=== PATIENT | female | born 1945 | race Caucasian/White ===

== ENCOUNTER 2018-09-15 13:23 | Outpatient (REF) | payer OTHER, SELFPAY ==
[2018-09-15 20:00] LABS: ALT 19 U/L (12-78); AST 13 U/L (15-37); Anion Gap 7.9 mmol/L (3-11); BUN 19 mg/dL (7-18); CO2 30.1 mmol/L (21.0-32.0); CREATININE 1.08 mg/dL (0.55-1.02); Calcium 9.4 mg/dL (8.5-10.1); Chloride 103 mmol/L (98-107); Cholesterol 207 mg/dL (50-200); Estimated GFR 50.01 (mL/min/1.73m2); Glucose 102 mg/dL (70-100); HDL Cholesterol 50 mg/dL (40-60); LDL CHOLESTEROL 130 mg/dL (<100); Potassium 4.4 mmol/L (3.5-5.1); Sodium 141 mmol/L (136-145); Triglyceride 189 mg/dL (30-150)
== END 2018-09-15 13:43 ==
LOC: NCHCN 13:23
PROVIDERS: PCP Internal Medicine; Visit Provider Nurse Practitioner Family
DX: I10 Essential (primary) hypertension (principal); E11.9 Type 2 diabetes mellitus without complications; E78.5 Hyperlipidemia, unspecified
CPT/HCPCS: 80048; 80061; 83721; 84450; 84460

== ENCOUNTER 2019-01-17 10:39 | Outpatient (CLI) | payer OTHER, SELFPAY ==
--- NOTE | 2019-01-17 10:12 | DI.RAD_ITS ---
SYMPTOMS/DIAGNOSIS: RT KNEE INJURY RIGHT KNEE: Narrowing of the medial tibiofemoral joint space is noted. There is articular sclerosis and hypertrophic spurring. Also there are severe degenerative changes involving the patellofemoral joint. SUMMARY: Severe right knee DJD.
== END 2019-01-17 10:59 ==
PROVIDERS: PCP Internal Medicine; Referring Provider Internal Medicine; Visit Provider Student in an Organized Health Care Education/Training Program
DX: M25.561 Pain in right knee; M17.11 Unilateral primary osteoarthritis, right knee; R22.41 Localized swelling, mass and lump, right lower limb; S70.11XA Contusion of right thigh, initial encounter; W22.8XXA Striking against or struck by other objects, initial encounter
CPT/HCPCS: 73562; 99203; 99214

== ENCOUNTER 2019-11-09 14:00 | Inpatient (IN) | payer OTHER, SELFPAY ==
[2019-11-09] VITALS (20 sets, daily range): BP systolic 95–144; BP diastolic 45–82; PULSE 86–103; RESP 4–24; TEMP 36.9–37.5; O2SAT 98–100
--- NOTE | 2019-11-09 15:05 | ED.GENADUL_ITS ---
Discharge Plan Disposition Condition: Stable Discharge Details Chief Complaint: SOB Admit Date/Time: 11/09/19 17:19 Admit Provider: Soto Sunshine Attending Provider: Hyacinth Hardwick Primary Care Provider: Geremias Joel ED Provider: Bart Rivas Discharge Instructions Activity:: Activity as Tolerated Equipment/Supplies:: No Equipment Needed Diet:: Low Sodium Discharge Orders Discharge Orders: Discharge Order (Routine); Ordered 11/10/19 Ordered By: Hyacinth Hardwick Discharge Data Discharge Date/Time-TO BE ENTERED AT DEPARTURE: 11/09/19 18:16 Medical Decision Making 1514 -- 74yo f with history of HTN and hyperlipidemia, here with SOB progressive over the past 2 weeks despite azithromycin. COVID neg 3 days ago. Consider CHF vs PE vs ACS. Delay in diagnostics secondary to difficulty with IV access. -- Labs reviewed and elevated ddimer. Nl BNP and trop. Will proceed to CT to assess for acute life threatening PE. Patient is anemic. Hb 10.3, this is down from last in 2013. Pt denies bleeding history. Mag mildly low- will give mag ox 800mg. 16:57 -- CT chest interprted by radiology: IMPRESSION: 1. Small pulmonary embolism to the lingula. 2. Pulmonary nodules.For patients at low risk (minimal or absent history of smoking and of other known risk factors), no routine follow-up is indicated. For patients at high risk (history of smoking or of other known risk factors), consider optional CT at 12 months. (Brittany et al., Fleischner Society, 2017) 3. Abnormal appearing partially viewed thyroid gland. Consider ultrasound. 4. Gallstones without evidence of acute cholecystitis. Patient is not a PUI and had recent neg COVID testing. Will repeat testing out of abundance of caution per hospital protocol. Medical Records Medical records reviewed: Yes I reviewed the patient's medical records. Lab Data Lab results reviewed: Yes I reviewed the patient's lab results. ECG Data Attestation: I personally reviewed and interpreted this ECG (s) as follows: (sinus 88bpm, nl axis, subtle st dep I, II, v4-6) Prior ECG tracings: available for review (findings today similar to prior 07/14/10) HPI General Mode of arrival: ambulatory . Date/Time Provider Initiated Documentation: 11/09/19 14:39 . Limitations to Documentation: no limitations . Information obtained by: patient . HPI Narrative: 74-year-old female with history of hypertension and hyperlipidemia, presents with chief complaint of shortness of breath. Patient notes she has had shortness of breath over the past 2 weeks. She does have some associated cough. No fevers. No chest pain. She notes shortness of breath is worse when she is lying flat. She denies associated swelling. She was tested for COVID-19 and was negative on 11/06/2019. Symptoms have persisted despite completion of azithromycin course prescribed by PCP. Related Data Home Medications Medication Instructions Recorded Confirmed hydrochlorothiazide 25 mg PO DAILY 03/31/13 11/09/19 simvastatin 40 mg PO DAILY 03/31/13 11/09/19 carboxymethylcellulose sodium 0.25 1 drp OP 4-6XD PRN 01/17/19 11/09/19 % eye drops in a dropperette lisinopril 5 mg tablet 5 mg PO DAILY 01/17/19 11/09/19 oxycodone 5 mg tablet 5 mg PO DAILY PRN tab 01/17/19 11/09/19 triamcinolone acetonide 0.1 % 1 applic TP BID PRN 01/17/19 11/09/19 topical cream acetaminophen [Tylenol] 650 mg PO Q4H PRN PRN #30 tab 11/10/19 apixaban See Rx Instructions .ROUTE 11/10/19 .COMPLEX #74 dose pk ascorbic acid (vitamin C) [Vitamin 250 mg PO BID #60 tab 11/10/19 C] cyanocobalamin (vitamin B-12) 1,000 mcg PO DAILY #30 cap 11/10/19 docusate sodium [Colace] 100 mg PO BID #60 cap 11/10/19 ferrous sulfate 325 mg PO BID #60 tab 11/10/19 Previous Rx's Medication Instructions Recorded acetaminophen [Tylenol] 650 mg PO Q4H PRN PRN #30 tab 11/10/19 apixaban See Rx Instructions .ROUTE 11/10/19 .COMPLEX #74 dose pk ascorbic acid (vitamin C) [Vitamin 250 mg PO BID #60 tab 11/10/19 C] cyanocobalamin (vitamin B-12) 1,000 mcg PO DAILY #30 cap 11/10/19 docusate sodium [Colace] 100 mg PO BID #60 cap 11/10/19 ferrous sulfate 325 mg PO BID #60 tab 11/10/19 Allergies Allergy/AdvReac Type Severity Reaction Status Date / Time No Known Allergies Allergy Verified 01/17/19 09:38 General Stated Complaint: SOB ALVARADO: 3 Review of Systems All systems reviewed & are unremarkable except as noted in HPI and below Constitutional Constitutional: Denies fever(s) Cardiovascular Cardiovascular: Denies chest pain and Reports dyspnea Respiratory Respiratory: Reports cough and Reports dyspnea PFSH Social History Smoking/Tobacco Use Status: Never Alcohol Intake: current Alcohol Intake frequency: holidays/special occasions only Alcohol type: beer Drug use: Never Do you feel safe at home: Yes Do you feel safe in your relationship?: Yes Exam Const General: cooperative and no acute distress HENMT Mouth: moist mucous membranes Eyes Conjunctivae: normal conjunctivae Sclera: normal sclerae Neck Neck: trachea midline, supple and no JVD Resp Auscultation: clear to auscultation bilaterally, no rales, no rhonchi and no wheezes Cardio Jugular venous pressure: no JVD Rate: regular rate and not tachycardic Rhythm: regular rhythm Heart Sounds: murmur systolic GI Palpation: soft, not firm, no guarding, no masses, not rigid and nontender Skin General skin exam: no rashes or lesions noted Neuro General: patient alert, patient awake, patient oriented x3 and tone normal Extrem General: no calf tenderness and no edema Psych Appearance: grossly normal Mental Status: mental status grossly normal Affect: anxious affect (Mild) Course Vital Signs Vital signs: Vital Signs Temperature 37.1 C 11/09/19 14:06 Pulse 97 H 11/09/19 14:06 Respiratory Rate 24 11/09/19 14:06 Blood Pressure 144/77 H 11/09/19 14:06 Pulse Oximetry 100 11/09/19 14:06 Temperature 37.1 C 11/09/19 14:06 Temperature Source Skin 11/09/19 14:06 Pulse 97 H 11/09/19 14:06 Respiratory Rate 24 11/09/19 14:11 Respiratory Effort Incrsd Work of Breathing 11/09/19 14:11 Respiratory Depth Normal 11/09/19 14:11 Respiratory Pattern Normal 11/09/19 14:11 Blood Pressure 144/77 H 11/09/19 14:06 Blood Pressure Position Sitting 11/09/19 14:06 Pulse Oximetry 100 11/09/19 14:06 Oxygen Delivery Method Room Air 11/09/19 14:06 Oxygen Flow Rate 0 11/09/19 14:06 Pain Level 0 11/09/19 14:06 Critical Care Time Critical Care Time Critical Care Time: Yes Total Critical Care Time: 40 Attestation: I spent greater than 40 minnutes addressing immediate life threats.
[2019-11-09 15:20] LABS: Abs Immature Grans 0.04 k/cumm (0.0-0.09); Absolute Basophil Count 0.01 k/cumm (0.0-0.2); Absolute Eosinophil Count 0.23 k/cumm (0.0-0.7); Absolute Lymphocyte Count 1.69 k/cumm (1.2-3.4); Absolute Monocyte Count 0.44 k/cumm (0.11-0.7); Absolute Neutrophil Count 6.07 k/cumm (1.2-6.7); Basophils % 0.1; Eosinophils % 2.7; HCT 33.2 % (36.0-46.0); HGB 10.4 g/dL (12.0-15.5); Immature Grans % 0.5 %; Lymphocytes % 19.9; Mean Corp. HGB Concentration 31.3 g/dL (32.0-36.0); Mean Corpuscular Volume 95.7 fL (80-95); Mean Platelet Volume 10.1 fL (8.0-11.0); Monocytes % 5.2; Neutrophils % 71.6; Platelet Count 242 x1000/uL (130-400); RBC 3.47 m/cumm (4.00-5.20); RBC Distribution Width 14.4 % (11.7-14.6); White Blood Cell Count 8.48 k/cumm (4.4-10.8)
--- NOTE | 2019-11-09 15:30 | DI.CT_ITS ---
EXAM: CT CHEST PE CTA CLINICAL HISTORY: SOB 2 weeks. TECHNIQUE: Imaging Protocol: Axial CT angiography was performed with multi-slice acquisition and mu lti-planar and/or 3D reconstructions. CONTRAST MATERIAL: Intravenous: Omnipaque 350 Contrast volume: 100 ml COMPARISON: No exams were available for comparison FINDINGS: The exam is limited by the patient's body habitus. Pulmonary Arteries: There is a question of a filling defect in a branch vessel in the lingula. The r emaining pulmonary arteries are free of thrombus. Tracheobronchial tree: Patent where visualized. Mediastinum and Melvi: No dominant adenopathy or fluid collection. Pulmonary parenchyma: No consolidation. A 4 millimeter nodule is seen in the anterior right upper lo be. A 3 millimeter nodule is noted in the right lower lobe. Pleura: No effusion or pneumothorax. Heart: The heart is not dilated. Mild coronary artery calcifications. Aorta: Thoracic aorta non-dilated. No evidence of dissection. Mild calcification. Upper abdomen: Gallstones. Gallbladder is not abnormally distended. No wall thickening or biliary dilatation is seen.. Bones: Degenerative changes are seen in the thoracic spine. IMPRESSION: Question of an embolus in a branch vessel in the lingula. Cholelithiasis. Two small pulmonary nodules. If the patient is at high risk for lung cancer a follow-up CT in 12 mon ths could be considered. RADIATION DOSE DELIVERED: 800.28mGy.cm Total DLP DATA REPOSITORY: All CT scans at this facility are submitted to the National Radiology Data Registry (NRDR) Dose Index Registry (DIR) with the [employer] (ACR). RADIATION OPTIMIZATION: All CT scans at this facility use at least one of these dose optimization te chniques: automated exposure control; mA and/or kV adjustment per patient size (includes targeted exa ms where dose is matched to clinical indication); or iterative reconstruction.
[2019-11-09 15:47] LABS: ALT 15 U/L (14-59); AST 12 U/L (15-37); Albumin 2.9 g/dL (3.4-5.0); Alkaline Phosphatase 122 U/L (46-116); Anion Gap 5.8 mmol/L (3-11); BUN 17 mg/dL (7-18); Bilirubin, Total 0.4 mg/dL (0.2-1.0); CO2 29.2 mmol/L (21.0-32.0); CREATININE 1.05 mg/dL (0.55-1.02); Calcium 9.1 mg/dL (8.5-10.1); Chloride 106 mmol/L (98-107); Estimated GFR 51.52 (mL/min/1.73m2); Glucose 95 mg/dL (74-106); Magnesium 1.6 mg/dL (1.8-2.4); NT-proBNP 337 pg/mL (<300); Potassium 4.2 mmol/L (3.5-5.1); Sodium 141 mmol/L (136-145); Total Protein 6.8 g/dL (6.4-8.2); Troponin I < 0.05 ng/Ml (<0.06)
[2019-11-09 15:53] LABS: D-Dimer 2491 ng/mlFEU (<500)
[2019-11-09] MEDS: Omnipaque 350 MG/ML 100 ML BTL IJ (15:56)
--- NOTE | 2019-11-09 16:43 | DI.VRAD_ITS ---
PROCEDURE INFORMATION: Exam: CT Angiography Chest With Contrast Exam date and time: 11/09/2019 3:36 PM Age: 74 years old Clinical indication: Shortness of breath; Patient HX: SOB 2 weeks TECHNIQUE: Imaging protocol: Computed tomographic angiography of the chest with intravenous contrast. 3D rendering: MIP and/or 3D reconstructed images were created by the technologist. Radiation optimization: All CT scans at this facility use at least one of these dose optimization techniques: automated exposure control; mA and/or kV adjustment per patient size (includes targeted exams where dose is matched to clinical indication); or iterative reconstruction. Contrast material: [id number]; Contrast volume: 100 ml; Contrast route: IV; COMPARISON: No relevant prior studies available. FINDINGS: Pulmonary arteries: Small focal pulmonary embolism to the lingula (5/221). In 1 mm nodule laterally in the right upper lobe (4/22). Aorta: Unremarkable. No aortic aneurysm. No aortic dissection. Thyroid: Abnormal appearing partially viewed thyroid gland. It is heterogeneous in density. Underlying mass is not excluded. Consider ultrasound for further evaluation. Lungs: 4 mm nodule in the anterior aspect of the right upper lobe (4/25). 3 mm nodule in the lateral segment of the right lower lobe (4/26). Pleural space: Unremarkable. No pneumothorax. No pleural effusion. Heart: Unremarkable. No cardiomegaly. No pericardial effusion. Lymph nodes: Unremarkable. No enlarged lymph nodes. Gallbladder and bile ducts: Cholecystectomy. Gallstones without evidence of acute cholecystitis. Bones/joints: Degenerative changes in the spine. Soft tissues: Unremarkable. IMPRESSION: 1. Small pulmonary embolism to the lingula. 2. Pulmonary nodules.For patients at low risk (minimal or absent history of smoking and of other known risk factors), no routine follow-up is indicated. For patients at high risk (history of smoking or of other known risk factors), consider optional CT at 12 months. (Brittany et al., Fleischner Society, 2017) 3. Abnormal appearing partially viewed thyroid gland. Consider ultrasound. 4. Gallstones without evidence of acute cholecystitis. THIS REPORT CONTAINS FINDINGS THAT MAY BE CRITICAL TO PATIENT CARE. The findings were verbally communicated via telephone conference with CHINEDU CALVERT at 4:43 PM EDT on 11/09/2019. The findings were acknowledged and understood. Dictated and Authenticated by: Odalis Knox MD. Ordering:AQUILINO Arriaga MD
[2019-11-09] MEDS: Enoxaparin 120 MG/0.8 ML SYR SC (17:05)
[2019-11-09] MEDS: Magnesium Oxide 400 MG TAB 800 MG PO (17:06)
--- NOTE | 2019-11-09 17:44 | W.PM.HP.N ---
Date of service: 11/09/19 Time of Service: 17:44 Assessment and Plan Assessment and plan (1) SOB (shortness of breath): Status: Acute Assessment and plan: SOB. Most definite finding is PE and will treat with NOAC; oxygenating well, no s/s hemodynamic compromise. Other potentially contributing issues are: 1. Anemia: will w/u; as above stool is negative 2. : cloinically not critical but will update ECHO 3. Wheeze (vs upper airway): will try updraft 4. 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 Tx Zpack by PVCP w/o help. COVID nmeg 11/05. In ER findingsw of note for elevayted d-Dimer anmd +CTA for embolus in lingula. Given dose Lovenox and admitted. Findings othjerwise of note for neg trop, nl REKG and marthginal BNNP 337. Also HCT 33 (none recent). FDenies bleeding or melena. Review of Systems All systems reviewed & are unremarkable except as noted in HPI and below PFSH Social History Smoking/Tobacco Use Status: Never Alcohol Intake: current Alcohol Intake frequency: holidays/special occasions only Alcohol type: beer Drug use: Never Do you feel safe at home: Yes Do you feel safe in your relationship?: Yes Meds Home Medications and Allergies Home Medications Medication Instructions Recorded Confirmed Type hydrochlorothiazide 25 mg PO DAILY 03/31/13 11/09/19 History simvastatin 40 mg PO DAILY 03/31/13 11/09/19 History naproxen sodium [Aleve] 440 mg PO DAILY 12/12/14 11/09/19 History carboxymethylcellulose sodium 0.25 1 drp OP 4-6XD PRN 01/17/19 11/09/19 History % eye drops in a dropperette lisinopril 5 mg tablet 5 mg PO DAILY 01/17/19 11/09/19 History oxycodone 5 mg tablet 5 mg PO DAILY PRN tab 01/17/19 11/09/19 History triamcinolone acetonide 0.1 % 1 applic TP BID PRN 01/17/19 11/09/19 History topical cream Allergies Allergy/AdvReac Type Severity Reaction Status Date / Time No Known Allergies Allergy Verified 01/17/19 09:38 Exam Narrative Exam Narrative: 103/69, 99, 23, 37.1, 100%. HEENT unremarkable; neck supple, unable to read JVP, carotids appear brisk but difficult exam; lungs diffuse mild wheeze, but not clear if this is from upper airway as patient seems to make a number of upper airway sounds during respiration; heart RRR with 3/6 sys murmur LSB to jug notch; abdomen soft and NT; rectal brown stool, heme negative; extremities 2+ mixed pitting and non-pitting edema LEs; neuro ox3, non-focal Results Labs Result diagrams: 11/09/19 15:10 11/09/19 15:10 Labs: Laboratory Results - last 24 hr 11/09/19 11/09/19 11/09/19 15:10 15:10 15:10 WBC 8.48 RBC 3.47 L Hgb 10.4 L Hct 33.2 L MCV 95.7 H MCH 30.0 MCHC 31.3 L RDW 14.4 Plt Count 242 MPV 10.1 Immature Gran % 0.5 Neutrophils % 71.6 Lymphocytes % 19.9 Monocytes % 5.2 Eosinophils % 2.7 Basophils % 0.1 Absolute Neutrophils 6.07 Absolute Lymphocytes 1.69 Absolute Monocytes 0.44 Absolute Eosinophils 0.23 Absolute Basophils 0.01 D-Dimer 2491 H Sodium 141 Potassium 4.2 Chloride 106 Carbon Dioxide 29.2 Anion Gap 5.8 BUN 17 Creatinine 1.05 H Estimated GFR/1.73 m2 51.52 Glucose 95 Calcium 9.1 Magnesium 1.6 L Total Bilirubin 0.4 AST 12 L ALT 15 Alkaline Phosphatase 122 H Troponin I < 0.05 NT-Pro-B Natriuret Pep 337 H Total Protein 6.8 Albumin 2.9 L Last Vital Signs Temp 37.1 C 11/09/19 15:33 Pulse 92 H 11/09/19 16:21 Resp 23 11/09/19 17:01 BP 103/69 11/09/19 17:01 Pulse Ox 100 11/09/19 17:01 COVID-19 Screening In the past 14 days, have you traveled outside of [place] or [place]?: NO Had IN PERSON contact w/suspected or confirmed C-19 person: No
[2019-11-09 18:27] LABS: Troponin I < 0.05 ng/Ml (<0.06)
[2019-11-09 18:33] LABS: Iron 49 ug/dL (50-170); Total Iron Binding Capacity 246 ug/dL (250-450); Transferrin Sat 20 % (15-50)
[2019-11-09] MEDS: Albuterol/Ipratropium 3 ML UPD VIAL UPD (20:16)
[2019-11-09 22:09] LABS: Ferritin 85 ng/mL (8-252); Folate 11.7 ng/mL (8.6-20.0); Vitamin B12 373 pg/mL (193-986)
[2019-11-10 03:10] VITALS: BP 100/64; PULSE 86; RESP 20; TEMP 36.6; O2SAT 98
[2019-11-10] MEDS: Zolpidem 5 MG TAB PO (03:15)
[2019-11-10 05:31] LABS: HCT 31.7 % (36.0-46.0); HGB 10.1 g/dL (12.0-15.5); Mean Corp. HGB Concentration 31.9 g/dL (32.0-36.0); Mean Corpuscular Hemoglobin 30.2 pg (27.0-33.0); Mean Corpuscular Volume 94.9 fL (80-95); Mean Platelet Volume 9.9 fL (8.0-11.0); Platelet Count 233 x1000/uL (130-400); RBC 3.34 m/cumm (4.00-5.20); RBC Distribution Width 14.6 % (11.7-14.6); White Blood Cell Count 7.36 k/cumm (4.4-10.8)
[2019-11-10 07:30] VITALS: BP 117/76; PULSE 85; TEMP 37.1; O2SAT 98
[2019-11-10] MEDS: Lisinopril 5 MG TAB PO (07:36)
[2019-11-10] MEDS: Apixaban 5 MG TAB 10 MG PO (07:36)
[2019-11-10] MEDS: Simvastatin 40 MG TAB PO (07:36)
[2019-11-10] MEDS: hydroCHLOROthiazide 25 MG TAB PO (07:37)
[2019-11-10 08:12] LABS: Magnesium 1.7 mg/dL (1.8-2.4)
[2019-11-10] MEDS: Docusate Sodium 100 MG CAP PO (08:53)
[2019-11-10] MEDS: MAGNESIUM SULFATE 2 GM/50 ML BAG IVPB (08:53)
[2019-11-10] MEDS: Ascorbic Acid 500 MG TAB 250 MG PO (08:53)
[2019-11-10] MEDS: Ferrous Sulfate 325 MG TAB PO (08:53)
[2019-11-10] MEDS: Normal Saline Flush 10 ML SYR IVP (08:56)
[2019-11-10 08:58] LABS: Anion Gap 3.9 mmol/L (3-11); BUN 13 mg/dL (7-18); CO2 30.1 mmol/L (21.0-32.0); CREATININE 0.98 mg/dL (0.55-1.02); Calcium 9.1 mg/dL (8.5-10.1); Chloride 106 mmol/L (98-107); Estimated GFR 55.79 (mL/min/1.73m2); Glucose 121 mg/dL (74-106); Potassium 4.4 mmol/L (3.5-5.1); Sodium 140 mmol/L (136-145)
[2019-11-10 09:24] LABS: COVID-19 RT-PCR UVMMC Result Negative (Negative)
--- NOTE | 2019-11-10 09:45 | DI.US_ITS ---
EXAM: US EXTREMITY VENOUS BI CLINICAL HISTORY: PE, suspected DVT. TECHNIQUE: Bilateral lower extremity venous ultrasound performed using grayscale, color-flow, and sp ectral Doppler analysis. COMPARISON: No exams were available for comparison FINDINGS: The bilateral common femoral, femoral and popliteal veins demonstrate normal compressibility, augment ation, and color Doppler. The posterior tibial veins are patent. IMPRESSION: Right: Negative for DVT Left: Negative for DVT DATA REPOSITORY:
[2019-11-10] MEDS: Cyanocobalamin 1000 MCG/ML VIAL IM/SC (10:10)
--- NOTE | 2019-11-10 11:20 | PHA.REVIEW ---
Pharmacy Admission Review - Admission Clinical Review (Last Reviewed 11/09/19 @ 17:48 by Soto Sunshine MD) SOB (shortness of breath) (Acute) No Known Allergies Allergy (Verified 01/17/19 09:38) Height 5 ft 2 in Weight 124.738 kg - Comments Comments/Follow Ups: PE - Renal Dosing Renal Dosing: BUN 13 mg/dL (7-18) 11/10/19 07:48 Creatinine 0.98 mg/dL (0.55-1.02) 11/10/19 07:48 Medications needing adjustments: Reviewed (crcl ~41ml/min) - Anticoagulation Anticoagulation: Hgb 10.1 g/dL (12.0-15.5) L 11/10/19 05:25 Hct 31.7 % (36.0-46.0) L 11/10/19 05:25 Plt Count 233 x1000/uL (130-400) 11/10/19 05:25 Creatinine 0.98 mg/dL (0.55-1.02) 11/10/19 07:48 DVT Prohphylaxis: Reviewed Medications: Apixaban Therapeutic Anticoagulation: Reviewed Medications: Apixaban - Opiate Usage Evaluate Pain Scale/Pains Meds: Reviewed Scheduled Bowel Reg ordered if on Opiates?: Yes - Relevant Labs Sodium 140 mmol/L (136-145) 11/10/19 07:48 Potassium 4.4 mmol/L (3.5-5.1) 11/10/19 07:48 Chloride 106 mmol/L (98-107) 11/10/19 07:48 Magnesium 1.7 mg/dL (1.8-2.4) L 11/10/19 07:48 Electrolytes, C-Reactive P, ESR: Reviewed (mag repleted) - DM Control DM Control: Glucose 121 mg/dL (74-106) H 11/10/19 07:48 Insulin Dosing: N/A - Heart Failure/NM Heart Failure/NM: Troponin I < 0.05 ng/Ml (<0.06) 11/09/19 17:43 NT-Pro-B Natriuret Pep 337 pg/mL (<300) H 11/09/19 15:10 EF%, SHIKHA's, B-Blockers, Diuretics: N/A - BP Control BP Control: Blood Pressure 117/76 Blood Pressure 100/64 If elevated: Reviewed - Qtc Review If Elevated: N/A (419) - IV to PO Switch IV Medications: Reviewed (all PO) - Home Meds Home Med List reviewed: Reviewed - Current meds Current Medication Order Review: Reviewed - Comments Comments/Follow Ups: covid 19 results pending. order for hemoccult stools test
--- NOTE | 2019-11-10 11:36 | DI.VRAD_ITS ---
PROCEDURE INFORMATION: Exam: US Duplex Lower Extremity Veins, Bilateral Exam date and time: 11/10/2019 11:16 AM Age: 74 years old Clinical indication: Other: Pe suspected dvt TECHNIQUE: Imaging protocol: Real-time duplex ultrasound of the extremities with 2-D duffy scale, color Doppler flow and spectral waveform analysis with image documentation. Complete exam focused on the bilateral lower extremity veins. COMPARISON: No relevant prior studies available. FINDINGS: Right deep veins: Unremarkable. The common femoral, femoral, proximal profunda femoral and popliteal veins are patent without thrombus. Normal Doppler waveforms. Normal compressibility and/or augmentation response. Right superficial veins: Saphenofemoral junction is patent without thrombus. Left deep veins: Unremarkable. The common femoral, femoral, proximal profunda femoral and popliteal veins are patent without thrombus. Normal Doppler waveforms. Normal compressibility and/or augmentation response. Left superficial veins: Saphenofemoral junction is patent without thrombus. Soft tissues: Unremarkable. IMPRESSION: No evidence of deep vein thrombosis. Dictated and Authenticated by: Blair Osorio MD. Ordering:ERNST Claros MD
[2019-11-10 11:52] VITALS: O2SAT 95
[2019-11-10 11:55] VITALS: BP 90/54; PULSE 83; RESP 17; TEMP 36.2; O2SAT 96
--- NOTE | 2019-11-10 14:57 | DSE_ITS ---
Date of service: 11/10/19 Time of Service: 14:57 DS: Diagnosis Discharge Diagnosis (1) Acute pulmonary embolism: Status: Acute Asessment and Plan: Being discharged home on eliquis (2) Wheezing: Status: Resolved (3) Chronic anemia: Status: Chronic (4) Iron deficiency: Status: Chronic Asessment and Plan: hemoccult negative (5) B12 deficiency: Status: Chronic (6) Aortic stenosis: Status: Chronic (7) COVID-19 ruled out: Status: Ruled-out (8) Obesity, morbid, BMI 50 or higher: Status: Chronic (9) Hyperlipidemia: Status: Chronic (10) Hypertension: Status: Chronic (11) Hypomagnesemia: Status: Acute Discharge Plan Disposition Patient Disposition: HOME Condition: Stable Discharge Details Chief Complaint: SOB Reason For Visit: ACUTE PULMONARY EMBOLISM,HYPOMAGNESEMIA,ANEMIA,MUR Admit Date/Time: 11/09/19 17:19 Admit Provider: Soto Sunshine Attending Provider: Soto Sunshine Primary Care Provider: Geremias Joel ED Provider: Bart Rivas Hospital Course Hospital Course: Ms Shields is a 74 year old female with h/o known , as well as hypertension, hyperlipidemia, and obesity with BMI of 50, who was admitted to [facility] hospitalist service on 11/09/2019 with shortness of breath/wheezing found to be due to an acute PE. Her venous doppler of BLE's was negative. She was initiated on lovenox in the ED and transitioned to full dose apixaban. It needs to be noted that her weight is right on the border for cut off for apixaban (120 kg), and if the patient gains weight, her PCP would have to change her treatment approach. While anemic, she was hemoccult negative, so anticoagulation was deemed safe. There were no arrhythmic events on telemetry. She ruled out for acute coronary syndrome. She will need to keep her outpatient echo appointment, but right now shows no symptoms of right heart strain with stable BP's (BP is 120/78 on discharge). She is recommended to follow up with hematology as outpatient - we will defer this referral to PCP. She did have wheezing when first admitted to the hospital, but this has now resolved. It is not clear that wheezing was related to the PE as her wheezing was described as upper respiratory in origin. We discussed that, if it were to recur, she and her PCP should have a conversation about an antihistamine and/or a PPI or an H2 batsheva, because she does sometimes get heartburn. The patient would benefit from an outpatient thyroid ultrasound based on an irregular appearance of her thyroid gland on CT. The patient is being discharged home today. She does not require oxygen on discharge. Care for patient as well as completion of her discharge summary took 40 minutes. Home Meds and New Rx's Prescriptions: New acetaminophen [Tylenol] 325 mg Tablet 650 mg PO Q4H PRN PRNQty: 30 RF: 0 ascorbic acid (vitamin C) [Vitamin C] 500 mg Tablet 250 mg PO BID Qty: 60 RF: 0 ferrous sulfate 325 mg (65 mg iron) Tablet 325 mg PO BID Qty: 60 RF: 0 docusate sodium [Colace] 100 mg Capsule 100 mg PO BID Qty: 60 RF: 0 cyanocobalamin (vitamin B-12) 1,000 mcg capsule 1,000 mcg PO DAILY Qty: 30 RF: 0 apixaban 5 mg (74 tabs) tablets,dose pack See Rx Instructions .ROUTE .COMPLEX Qty: 74 RF: 0 Continued lisinopril 5 mg tablet 5 mg PO DAILY RF: 0 oxycodone 5 mg tablet 5 mg PO DAILY PRNRF: 0 TheraTears 0.25 % dropperette 1 drp OP 4-6XD PRNRF: 0 triamcinolone acetonide 0.1 % cream 1 applic TP BID PRNRF: 0 simvastatin 40 MG tablet 40 mg PO DAILY RF: 0 hydrochlorothiazide 25 MG tablet 25 mg PO DAILY RF: 0 Discontinued naproxen sodium [Aleve] 220 MG tablet 440 mg PO DAILY RF: 0 Discharge Instructions Instructions: Apixaban (By mouth), Pulmonary Embolism (DC) Additional Instructions: Return to the hospital with any fever, bleeding, chest pain, or shortness of breath. Due to COVID-19, we recommend that everyone wear a mask if in a public space. Keep your echocardiogram appointment. Follow up with your PCP within 1-2 weeks. If wheezing returns, have a conversation with your PCP about possibly starting allergy and heartburn medicine. Stand Alone Forms: Nursing Discharge Form Referrals: Geremias Joel [Primary Care Provider] - Activity:: Activity as Tolerated Equipment/Supplies:: No Equipment Needed Diet:: Low Sodium Discharge Orders Discharge Orders: Discharge Order (Routine); Ordered 11/10/19 Ordered By: Hyacinth Hardwick DS: Summary Status at Discharge Functional status at discharge: independent ambulation Overall status at discharge: patient is back to baseline Mental Status: mental status grossly normal Speech and Movement: speech and movement normal Mood: congruent mood Affect: normal affect Exam Narrative Exam Narrative: General: Very pleasant middle-aged obese female, A&Ox3, looks well, no dyspnea/tachypnea noted HEENT: EOMI, MMM Heart: RRR, + WIN[place]RED Lungs: quiet wheezing on expiration in [place]RI[place] field Abdomen: soft, nontender, nondistended Extremities: BLE pitting lymphedema Psych Mental Status: mental status grossly normal Speech and Movement: speech and movement normal Mood: congruent mood Affect: normal affect DS: Data Vitals/I&O Vitals and I&O: Vital Signs Temperature 36.2 C L 11/10/19 11:55 Temperature Source Tympanic 11/10/19 11:55 Pulse 83 11/10/19 11:55 Pulse Rhythm Regular 11/10/19 07:35 Pulse 101 H 11/09/19 17:40 Respiratory Rate 17 11/10/19 11:55 Respiratory Effort Non-Labored 11/10/19 07:35 Respiratory Depth Normal 11/10/19 07:35 Respiratory Pattern Normal 11/10/19 07:35 Blood Pressure 90/54 L 11/10/19 11:55 Blood Pressure Mean 77 11/09/19 17:01 Blood Pressure Position Sitting 11/09/19 14:06 Pulse Oximetry 96 11/10/19 11:55 Oxygen Delivery Method Room Air 11/10/19 11:55 Oxygen Flow Rate 0 11/10/19 11:55 Pain Level 0 11/10/19 11:55 Comment 11/09/19 22:35 Intake & Output 11/09/19 11/10/19 11/10/19 23:59 11:59 23:59 Intake Total 360 / 360 Output Total 800 / 800 Balance -800 / -800 360 / 360 Weight 124.738 kg Intake: Oral 360 / 360 Output: Urine 800 / 800 Other: Urine Color Yellow Pale Yellow Urine Appearance Clear Clear Urine Odor None None Comment voids in the tiolet as per patient report Stool Occult Blood Negative Stool Size Large Stool Characteristics Soft Formed Voiding Methods Bedside Commode Data Completed and Pending Completed studies during hospitalization [Text1]: Venous doppler BLE's: No evidence of deep vein thrombosis. CTA chest: 1. Small pulmonary embolism to the lingula. 2. Pulmonary nodules.For patients at low risk (minimal or absent history of smoking and of other known risk factors), no routine follow-up is indicated. For patients at high risk (history of smoking or of other known risk factors), consider optional CT at 12 months. (Brittany et al., Fleischner Society, 2017) 3. Abnormal appearing partially viewed thyroid gland. Consider ultrasound. 4. Gallstones without evidence of acute cholecystitis. Labs on day of discharge: Labs from last 24 hours 11/10/19 11/10/19 11/09/19 07:48 05:25 21:23 WBC 7.36 RBC 3.34 L Hgb 10.1 L Hct 31.7 L MCV 94.9 MCH 30.2 MCHC 31.9 L RDW 14.6 Plt Count 233 MPV 9.9 Immature Gran % Neutrophils % Lymphocytes % Monocytes % Eosinophils % Basophils % Absolute Neutrophils Absolute Lymphocytes Absolute Monocytes Absolute Eosinophils Absolute Basophils Retic Count D-Dimer Sodium 140 Potassium 4.4 Chloride 106 Carbon Dioxide 30.1 Anion Gap 3.9 BUN 13 Creatinine 0.98 Estimated GFR/1.73 m2 55.79 Glucose 121 H Calcium 9.1 Magnesium 1.7 L Iron TIBC Transferrin % Sat Ferritin 85 Total Bilirubin AST ALT Alkaline Phosphatase Troponin I NT-Pro-B Natriuret Pep Total Protein Albumin Vitamin B12 373 Folate 11.7 COVID-19 PCR Nasopharyn COVID-19 PCR Ref Test Perform Site 11/09/19 11/09/19 11/09/19 17:43 17:05 15:10 WBC RBC Hgb Hct MCV MCH MCHC RDW Plt Count MPV Immature Gran % Neutrophils % Lymphocytes % Monocytes % Eosinophils % Basophils % Absolute Neutrophils Absolute Lymphocytes Absolute Monocytes Absolute Eosinophils Absolute Basophils Retic Count D-Dimer Sodium Potassium Chloride Carbon Dioxide Anion Gap BUN Creatinine Estimated GFR/1.73 m2 Glucose Calcium Magnesium Iron 49 L TIBC 246 L Transferrin % Sat 20 Ferritin Total Bilirubin AST ALT Alkaline Phosphatase Troponin I < 0.05 NT-Pro-B Natriuret Pep Total Protein Albumin Vitamin B12 Folate COVID-19 PCR Negative Nasopharyn COVID-19 PCR Not Applicable Ref Test Perform Site [place] [facility] 11/09/19 11/09/1920 15:10 15:10 15:10 WBC 8.48 RBC 3.47 L Hgb 10.4 L Hct 33.2 L MCV 95.7 H MCH 30.0 MCHC 31.3 L RDW 14.4 Plt Count 242 MPV 10.1 Immature Gran % 0.5 Neutrophils % 71.6 Lymphocytes % 19.9 Monocytes % 5.2 Eosinophils % 2.7 Basophils % 0.1 Absolute Neutrophils 6.07 Absolute Lymphocytes 1.69 Absolute Monocytes 0.44 Absolute Eosinophils 0.23 Absolute Basophils 0.01 Retic Count 2.0 D-Dimer 2491 H Sodium Potassium Chloride Carbon Dioxide Anion Gap BUN Creatinine Estimated GFR/1.73 m2 Glucose Calcium Magnesium Iron TIBC Transferrin % Sat Ferritin Total Bilirubin AST ALT Alkaline Phosphatase Troponin I NT-Pro-B Natriuret Pep Total Protein Albumin Vitamin B12 Folate [facility] Ref Test Perform Site 11/09/19 15:10 WBC RBC Hgb Hct MCV MCH MCHC RDW Plt Count MPV Immature Gran % Neutrophils % Lymphocytes % Monocytes % Eosinophils % Basophils % Absolute Neutrophils Absolute Lymphocytes Absolute Monocytes Absolute Eosinophils Absolute Basophils Retic Count D-Dimer Sodium 141 Potassium 4.2 Chloride 106 Carbon Dioxide 29.2 Anion Gap 5.8 BUN 17 Creatinine 1.05 H Estimated GFR/1.73 m2 51.52 Glucose 95 Calcium 9.1 Magnesium 1.6 L Iron TIBC Transferrin % Sat Ferritin Total Bilirubin 0.4 AST 12 L ALT 15 Alkaline Phosphatase 122 H Troponin I < 0.05 NT-Pro-B Natriuret Pep 337 H Total Protein 6.8 Albumin 2.9 L Vitamin B12 Folate COVID-19 PCR Nasopharyn COVID-19 PCR Ref Test Perform Site [facility] Social History Smoking/Tobacco Use Status: Never Alcohol Intake: current Alcohol Intake frequency: holidays/special occasions only Alcohol type: beer Drug use: Never Do you feel safe at home: Yes Do you feel safe in your relationship?: Yes
[2019-11-10 15:01] VITALS: BP 120/78; PULSE 90
== END 2019-11-10 16:13 | disposition home or self-care (01) | DRG 176 ==
LOC: ER 14:35 → MS 18:11
PROVIDERS: Admitting Provider General Practice; Emergency Provider Student in an Organized Health Care Education/Training Program; PCP Internal Medicine; Visit Provider Internal Medicine
DX: I26.99 Other pulmonary embolism without acute cor pulmonale (principal); Z68.43 Body mass index [BMI] 50.0-59.9, adult; R06.2 Wheezing; D50.9 Iron deficiency anemia, unspecified; E53.8 Deficiency of other specified B group vitamins; I35.0 Nonrheumatic aortic (valve) stenosis; Z03.818 Encounter for observation for suspected exposure to other biological agents ruled out; R93.89 Abnormal findings on diagnostic imaging of other specified body structures; E66.01 Morbid (severe) obesity due to excess calories; E78.5 Hyperlipidemia, unspecified; I10 Essential (primary) hypertension; E83.42 Hypomagnesemia; Z23 Encounter for immunization
CPT/HCPCS: 36415; 71275; 80048; 80053; 85027; 93005; 96372; 99222; 99239; 99285; U0003; 82607; 82728; 82746; 83540; 83550; 83735; 83880; 84484; 85025; 85045; 85379; 93010; 93970; 99221; 99284; J1650; J3420; J3490; J7620

== ENCOUNTER 2019-11-19 14:19 | Outpatient (REF) | payer OTHER, SELFPAY ==
[2019-11-19 19:24] LABS: COMMENT (LAB VIEW ONLY) 133.24 mg/dL; Microalb ug/mg Crea 7.4 ug/mg Cr
== END 2019-11-19 14:39 ==
LOC: NCHCN 14:19
PROVIDERS: PCP Internal Medicine; Visit Provider Nurse Practitioner Family
DX: E11.9 Type 2 diabetes mellitus without complications (principal)
CPT/HCPCS: 82043; 82570